=== PATIENT | female | born 1965 | race Hispanic/Latino ===

== ENCOUNTER 2021-06-08 14:11 | Emergency (ER) | payer OTHER ==
[2021-06-08] MEDS ORDERED: Morphine 4 MG/ML VIAL ONE (15:05)
[2021-06-08] MEDS ORDERED: Clindamycin/D5W 900 mg/50 ml Premix Bag ONE (15:05)
[2021-06-08 15:20] LABS: #Eosinphils 0.1 thou/uL (0.0-0.7); #Lymphocytes 1.3 thou/uL (1.20-3.40); #Monocytes 0.5 thou/uL (0.11-0.59); #Neutrophils 2.9 thou/uL (1.40-6.50); %Basophils 0.6 % (0.0-1.0); %Eosinophils 1.6 % (0.0-10.0); %Lymphocytes 26.7 % (21.0-51.0); %Monocytes 11.1 % (0.0-10.0); Hemoglobin 15.4 g/dL (12.0-16.0); Mean Corpuscular HGB CONC 34.4 g/dL (32.0-36.0); Mean Corpuscular Hemoglobin 34.7 pg (27.0-31.0); Mean Platelet Volume 9.5 fL (7.4-10.4); Platelet Count 50 thou/uL (130-400); RBC Distribution Width 12.6 % (11.5-14.5); Red Blood Cell (RBC) Count 4.44 mill/uL (4.20-5.40); White Blood Cell (WBC) Count 4.8 thou/uL (4.8-10.8)
[2021-06-08 15:32] LABS: Large Platelets SLIGHT; MDiff Complete? YES; Macrocytosis SLIGHT = 6-15 cells (100X) (0-5/hpf); Platelet Morphology Comment Appears Decreased
[2021-06-08 15:40] LABS: ALT (SGPT) 74 U/L (8-55); AST (SGOT) 123 U/L (5-34); Albumin 3.2 g/dL (3.5-5.0); Alkaline Phosphatase 188 U/L (40-110); Anion Gap 12 mmol/L (10-20); BUN (Urea Nitrogen) 8 mg/dL (9.8-20.1); Bilirubin, Total 1.6 mg/dL (0.2-1.2); Calc. Creatinine Clearance 0 mL/min (70-130); Carbon Dioxide 22 mmol/L (22-29); Chloride 107 mmol/L (98-107); Globulin 4.5 g/dL (2.4-3.5); Glucose 96 mg/dL (70-105); Potassium 3.9 mmol/L (3.5-5.1); Protein, Total 7.7 g/dL (6.0-8.3); Sodium 137 mmol/L (136-145)
== END 2021-06-08 16:30 | disposition home or self-care (01) ==
LOC: ERS 14:11
DX: L03.115 Cellulitis of right lower limb (principal); D69.6 Thrombocytopenia, unspecified
CPT/HCPCS: 36415; 80053; 83605; 85025; 85652; 86140; 87040; 96365; 96375; J2270; J3490

== ENCOUNTER 2021-12-12 12:21 | Emergency (ER) | payer OTHER | END 2021-12-12 13:45 | disposition home or self-care (01) | LOC: ERS 12:21 | DX: H60.8X3 Other otitis externa, bilateral (principal) | CPT/HCPCS: 99282 ==